=== PATIENT | female | born 1990 | race Caucasian/White ===

== ENCOUNTER 2020-01-09 14:14 | Emergency (ER) | payer MEDICAID, SELFPAY ==
[2020-01-09 14:17] VITALS: BP 116/73; PULSE 89; RESP 18; TEMP 36.2; O2SAT 97; BMI 32.8
--- NOTE | 2020-01-09 16:05 | ED.VIS.GEN ---
History of Present Illness Chief Complaint: Abd Pain Informant: Patient Narrative: 29-year-old female with no significant past medical history presents with concern for . Patient states that she has not had a period for 3 months. States that she has had multiple it of urinary test at home. States that she does have slight left-sided abdominal cramping. Denies any vaginal bleeding or discharge. Patient states that she has symptoms of like breast tenderness and nausea. States that her tests at home were negative with her first daughter. Denies any fever, chills, chest pain, shortness of breath. Past Medical History - Allergies and Home Meds Allergies/Adverse Reactions: Allergies codeine Allergy (Verified 01/09/20 14:17) Anaphylaxis ibuprofen Allergy (Verified 01/09/20 14:17) Anaphylaxis PLUS A RASH naproxen Allergy (Verified 01/09/20 14:17) Anaphylaxis tramadol Allergy (Verified 01/09/20 14:17) Anaphylaxis fluoxetine [From Prozac] Adverse Reaction (Verified 01/09/20 14:17) NEEDS FOLLOW-UP CYST [facility] - Prior records reviewed: Yes Past Medical History: None Surgical History: no surgical history Lives: With Family Smoking Status: Current every day smoker Alcohol: None Drugs: None Review of Systems General: Denies: Chills, Fever, Sweats Eyes: Denies: Visual changes - bilaterally, Diplopia ENT: Denies: Rhinorrhea, Sore throat Cardiovascular: Denies: Chest pain, Palpitations Respiratory: Denies: Dyspnea, Cough, Dyspnea on exertion Gastrointestinal: Reports: Abdominal pain. Denies: Nausea, Vomiting, Diarrhea, Melena, Hematochezia Genitourinary: Denies: Dysuria, Hematuria, Frequency Musculoskeletal: Denies: Back pain, Extremity Pain Skin: Denies: Rash, Wounds Neurological: Denies: Headache, Weakness, Numbness Physical Exam Vital Signs/Narrative: Vital Signs Temp Pulse Resp BP Pulse Ox 01/09/20 14:17 97.2 F L 89 18 116/73 97 Inital Vital Signs reviewed: Yes General: Well nourished, Well developed, No Acute Distress Head: Normocephalic, Atraumatic Eyes: Perrl, EOMI ENT: Moist mucous membranes, No rhinorrhea Neck: Supple, Nontender Cardiovascular: Regular rate, Regular rhythm, No murmurs Respiratory: No distress, CTA bilaterally, Chest nontender Abdomen: Soft, Nontender, Nondistended, Normal bowel sounds Back: Nontender, Normal Inspection Extremities: Nontender, No edema Skin: Normal color, No rash Neurological: Alert, Oriented x3, Cranial nerves II-XII grossly intact, Normal Strength, Normal Sensation Psychological: Normal affect, Normal Mood Diagnostic/Tx/Re-eval Laboratory Data 01/09/20 01/09/20 01/09/20 16:15 16:23 16:23 WBC 7.9 RBC 4.96 Hgb 14.3 Hct 44.6 MCV 89.9 MCH 28.8 MCHC 32.1 RDW Std Deviation 42.4 RDW Coeff of Wilberto 12.9 Plt Count 269 MPV 11.4 Immature Gran % (Auto) 0.300 Neut % (Auto) 58.6 Lymph % (Auto) 30.2 Esmeralda % (Auto) 7.0 Eos % (Auto) 3.5 Baso % (Auto) 0.4 Absolute Neuts (auto) 4.6 Absolute Lymphs (auto) 2.39 Nucleated RBC % 0 Sodium 140 Potassium 3.6 Chloride 108 H Carbon Dioxide 29.0 Anion Gap 3 L BUN 11 Creatinine 0.88 Estim Creat Clear Calc 89.90 Est GFR (MDRD) Af Amer 99 Est GFR (MDRD) Non-Af 82 BUN/Creatinine Ratio 12.6 Glucose 78 Calcium 9.2 Serum , Qual Urine Color Yellow Urine Clarity Clear Urine pH 7.0 Ur Specific [place] 1.010 Urine Protein Negative Urine Glucose (UA) Normal Urine Ketones Negative Urine Occult Blood Negative Urine Nitrite Negative Urine Bilirubin Negative Urine Urobilinogen Normal Ur Leukocyte Esterase 25 H Urine RBC 0 SEEN Urine WBC 0-5 SEEN Ur Squamous Epith Cells 0-5 SEEN Urine Bacteria 0 SEEN Urine Mucus 0 SEEN 01/09/20 16:23 WBC RBC Hgb Hct MCV MCH MCHC RDW Std Deviation RDW Coeff of Wilberto Plt Count MPV Immature Gran % (Auto) Neut % (Auto) Lymph % (Auto) Esmeralda % (Auto) Eos % (Auto) Baso % (Auto) Absolute Neuts (auto) Absolute Lymphs (auto) Nucleated RBC % Sodium Potassium Chloride Carbon Dioxide Anion Gap BUN Creatinine Estim Creat Clear Calc Est GFR (MDRD) Af Amer Est GFR (MDRD) Non-Af BUN/Creatinine Ratio Glucose Calcium Serum , Qual NEGATIVE Urine Color Urine Clarity Urine pH Ur Specific [place] Urine Protein Urine Glucose (UA) Urine Ketones Urine Occult Blood Urine Nitrite Urine Bilirubin Urine Urobilinogen Ur Leukocyte Esterase Urine RBC Urine WBC Ur Squamous Epith Cells Urine Bacteria Urine Mucus - Medical Decision Making Appears well nontoxic. Benign abdominal exam. Patient essentially states that she does not have significant abdominal pain but wanted to confirm whether she is or not. Patient's blood test negative. Urine negative. No evidence of UTI. Patient will follow up with her COMMERCIAL PROPERTY MANAGER in [place]. Asked to return for new or worsening symptoms. Impression: 1. Amennorhea ED Disposition - Plan for ED Patient: Disposition: Home or Assisted Living Instructions: ED Amenorrhea [facility] - 2 Days
[2020-01-09 16:32] VITALS: BP 127/89; PULSE 94; RESP 16; O2SAT 100
[2020-01-09 16:33] LABS: Bacteria 0 SEEN /hpf (None Seen); Mucous, Urine 0 SEEN /hpf (<or=2+); Red Blood Cells-Urine 0 SEEN /hpf (0-5)
[2020-01-09 16:38] LABS: Absolute Lymphocyte Count 2.39 X10^3/uL (0.83-4.51); Absolute Neutrophil Count 4.6 X10^3/uL (2.0-7.7); Basophil# 0.03 X10^3/uL; Basophil% 0.4 % (0-1); Eosinophil# 0.28 X10^3/uL; Eosinophils% 3.5 % (0-5); Hematocrit 44.6 % (37-47); Hemoglobin 14.3 g/dL (12.0-15.0); Lymphocyte # 2.39 X10^3/ul (4.0); Lymphocyte % 30.2 % (19-41); Mean Corp Hgb Conc 32.1 g/dL (32-36); Mean Corpuscular Hgb 28.8 pg (27.0-32.0); Mean Corpuscular Volume 89.9 fL (81-99); Mean Platelet Vol. 11.4 fl (6.2-12.0); Monocyte# 0.55 X10^3/uL; NRBC Flagged by Analyzer 0 % (0-5); Neutrophil # 4.64 X10^3/uL (2.7-7.7); Neutrophil % 58.6 % (47-70); Platelet Count 269 K/mm3 (150-450); RBC Distribution Width CV 12.9 % (11.6-14.6); RBC Distribution Width SD 42.4 fl (35.1-43.9); Red Blood Count 4.96 M/mm3 (4.2-5.4); White Blood Count 7.9 K/mm3 (4.4-11.0)
[2020-01-09 16:51] LABS: Color, Urine Yellow (Yellow); Glucose, Dipstick Normal (Normal); Ketone-Dipstick Negative (Negative); Leukocyte Esterase-Dipstick 25 /ul (Negative); Nitrite-Dipstick Negative (Negative); Occult Blood-Urine Negative /ul (Negative); Protein-Dipstick Negative (Negative); Urine Bilirubin Dipstick Negative (Negative); Urine Clarity Clear (Clear); Urine Urobilinogen Normal (Normal)
[2020-01-09 16:52] LABS: Anion Gap 3 (5-15); BUN 11 mg/dL (7-18); BUN/Creat Ratio 12.6 RATIO (10-20); Calcium,Total 9.2 mg/dL (8.5-10.1); Chloride 108 mmol/L (98-107); Creatinine, Serum 0.88 mg/dL (0.55-1.02); EST Glomerular Filtration Rate 82 mL/min (>60); Est Glom Filt Rate - Afr Amer 99 mL/min (>60); Glucose 78 mg/dL (74-106); Potassium 3.6 mmol/L (3.5-5.1); Sodium Level 140 mmol/L (136-145)
[2020-01-09 16:54] LABS: Internal QC Validated? YES +Cl - CLEAR BKGD; Pregnancy, Serum, hCG Quali. NEGATIVE Negative
[2020-01-09 17:02] LABS: Squamous Epithelial Cells - UA 0-5 SEEN /hpf (5-10); White Blood Cells 0-5 SEEN /hpf (0-5)
[2020-01-09 17:51] VITALS: PULSE 81; RESP 16; O2SAT 100
--- NOTE | 2020-01-09 17:51 | ED.RN ---
THIS NURSE REVIEWED D/C INSTRUCTIONS WITH PT. PT VERBALIZED UNDERSTANDING OF INSTRUCTIONS. IV D/C. IV CATHETER INTACT. PT TOLERATED WELL. PT DENIES FURTHER NEEDS OR QUESTIONS AT THIS TIME. PT AMBULATES FROM DEPARTMENT ON OWN WITHOUT ASSISTANCE FROM STAFF
== END 2020-01-09 17:52 | disposition home or self-care (01) ==
PROVIDERS: Emergency Provider Emergency Medicine
DX: N91.2 Amenorrhea, unspecified (principal); F17.200 Nicotine dependence, unspecified, uncomplicated
CPT/HCPCS: 80048; 81001; 84703; 85025; 99283; A4216

== ENCOUNTER 2020-03-10 16:54 | Emergency (ER) | payer MEDICAID, SELFPAY ==
[2020-03-10 16:55] VITALS: BP 112/62; PULSE 72; RESP 16; RESP 18; TEMP 36.1; O2SAT 97; O2SAT 98; BMI 34.9
--- NOTE | 2020-03-10 17:20 | ED.DCSUM_ITS ---
History of Present Illness Chief Complaint: General Illness Narrative: 30-year-old female presenting for evaluation of her pain. Patient had a miscarriage that did not complete and had D&E performed yesterday by her INDUCTION MACHINE SETTER Dr. Huang. Patient states that she was discharged home on Tylenol and ibuprofen but still has pain. She has not had fever, significant vaginal discharge. She has a slight amount of bleeding which she states was what he told her would be expected. Patient states he called her INDUCTION MACHINE SETTER however he was unable to call her in a prescription for narcotics and recommended that she go to the emergency room since he works 2 hours away from here. Past Medical History - Allergies and Home Meds Allergies/Adverse Reactions: Allergies codeine Allergy (Verified 01/09/20 14:17) Anaphylaxis ibuprofen Allergy (Verified 01/09/20 14:17) Anaphylaxis PLUS A RASH naproxen Allergy (Verified 01/09/20 14:17) Anaphylaxis tramadol Allergy (Verified 01/09/20 14:17) Anaphylaxis fluoxetine [From Prozac] Adverse Reaction (Verified 01/09/20 14:17) NEEDS FOLLOW-UP CYST Primary Care Physician: Mesha Castorena, PA [Primary Care Provider] - Prior records reviewed: Yes Past Medical History: None Surgical History: no surgical history Lives: Spouse/ Significant Other Smoking Status: Current every day smoker Alcohol: None Drugs: None Review of Systems General: Denies: Chills, Fever, Sweats Eyes: Denies: Visual changes - bilaterally, Diplopia ENT: Denies: Rhinorrhea, Sore throat Cardiovascular: Denies: Chest pain, Palpitations Respiratory: Denies: Dyspnea, Cough, Dyspnea on exertion Gastrointestinal: Reports: Abdominal pain. Denies: Nausea, Vomiting, Diarrhea, Constipation Genitourinary: Reports: - - Slight vaginal bleeding status post D and E. Denies: Dysuria, Hematuria Musculoskeletal: Denies: Myalgias, Arthralgias Skin: Denies: Rash, Abscess Neurological: Denies: Headache, Weakness Physical Exam Vital Signs/Narrative: Vital Signs Temp Pulse Resp BP Pulse Ox 03/10/20 16:55 97.0 F L 72 18 112/62 98 General: Well nourished, No Acute Distress Head: Normocephalic Eyes: Perrl, EOMI ENT: Moist mucous membranes, No rhinorrhea Cardiovascular: Regular rate, Regular rhythm Respiratory: No distress, CTA bilaterally Abdomen: Soft, Nondistended, Tender - Suprapubic tenderness to palpation. Extremities: Nontender, No edema Skin: Normal color, No rash. Negative for: Cyanosis, Diaphoresis Neurological: Alert, Oriented x3, Cranial nerves II-XII grossly intact Psychological: Normal affect, Normal Mood Diagnostic/Tx/Re-eval - Medical Decision Making 30-year-old female presenting for treatment of her pain status post D & E yesterday. Patient states that she was unable to get medication from her INDUCTION MACHINE SETTER because he works 2 hours away and he was unable to call it in. Her physical exam shows some mild suprapubic tenderness. Her abdomen is nonperitoneal. She has no red flag signs or symptoms of infection. I did review the surgical note from her procedure which was very clear that all products of conception were removed. Given patient's pain I will treat her with a short course of oxycodone. She will follow-up with her INDUCTION MACHINE SETTER. She is given signs and symptoms that she would need to return for. Patient stable discharge at this time. Impression: 1. Postoperative pain ED Disposition - Plan for ED Patient: Disposition: Home or Assisted Living Instructions: ED Post Op Wound Check, Pain Prescriptions: Oxycodone [Oxyir] 5 mg PO Q6H PRN PRN 3 Days #12 tab PRN Reason: Pain Prescription Printed Referrals: Mesha Castorena PA [Primary Care Provider] -
[2020-03-10] MEDS: oxyCODONE 5 MG Tablet PO (17:28)
[2020-03-10 17:50] VITALS: O2SAT 99
== END 2020-03-10 17:50 | disposition home or self-care (01) ==
PROVIDERS: Emergency Provider Student in an Organized Health Care Education/Training Program; PCP Physician Assistant Medical
DX: G89.18 Other acute postprocedural pain (principal); F17.200 Nicotine dependence, unspecified, uncomplicated
CPT/HCPCS: 99283

== ENCOUNTER 2020-04-07 13:36 | Emergency (ER) | payer MEDICAID, SELFPAY ==
[2020-04-07 13:38] VITALS: BP 133/73; PULSE 67; RESP 16; TEMP 36.3; O2SAT 99; BMI 35.4
--- NOTE | 2020-04-07 13:50 | ED.DCSUM_ITS ---
History of Present Illness Chief Complaint: Informant: Patient Narrative: 30-year-old female states that on March 10 she underwent a D&C with her LABORER POULTRY HATCHERY in [place]. She tells me that she called them today and they told her to go to emergency and get a test. She tells me that she took approximately 5 test today which is very inconclusive. She is 3 days late on starting her, even though she was had a D&C less than 30 days ago. She lives in [place] and is here in [place] doing laundry with her family. Therefore she was not able to make it back to [place] to be seen. She tells me that her LABORER POULTRY HATCHERY's office is quite concerned that if she is she will need to be observed. Past Medical History - Allergies and Home Meds Allergies/Adverse Reactions: Allergies codeine Allergy (Verified 04/07/20 13:38) Anaphylaxis ibuprofen Allergy (Verified 04/07/20 13:38) Anaphylaxis PLUS A RASH naproxen Allergy (Verified 04/07/20 13:38) Anaphylaxis tramadol Allergy (Verified 04/07/20 13:38) Anaphylaxis fluoxetine [From Prozac] Adverse Reaction (Verified 04/07/20 13:38) NEEDS FOLLOW-UP CYST Primary Care Physician: Mesha Castorena PA [Primary Care Provider] - Surgical History: no surgical history Lives: Spouse/ Significant Other Smoking Status: Current every day smoker Drugs: None Review of Systems General: Denies: Chills, Fever, Sweats Eyes: Denies: Visual changes - bilaterally, Diplopia ENT: Denies: Rhinorrhea, Sore throat Cardiovascular: Denies: Chest pain, Palpitations Respiratory: Denies: Dyspnea, Cough, Dyspnea on exertion Gastrointestinal: Denies: Abdominal pain, Nausea, Vomiting, Diarrhea, Melena, Hematochezia Genitourinary: Denies: Dysuria, Hematuria, Frequency Musculoskeletal: Denies: Back pain, Extremity Pain Skin: Denies: Rash, Wounds Neurological: Denies: Headache, Weakness, Numbness Physical Exam Vital Signs/Narrative: Vital Signs Temp Pulse Resp BP Pulse Ox 04/07/20 13:38 97.4 F L 67 16 133/73 H 99 Inital Vital Signs reviewed: Yes General: Well nourished, Well developed, No Acute Distress Head: Normocephalic, Atraumatic Eyes: Perrl, EOMI ENT: Moist mucous membranes, No rhinorrhea Neck: Supple, Nontender Cardiovascular: Regular rate, Regular rhythm, No murmurs Respiratory: No distress, CTA bilaterally, Chest nontender Abdomen: Soft, Nontender, Nondistended, Normal bowel sounds Back: Nontender, Normal Inspection Extremities: Nontender, No edema Skin: Normal color, No rash Neurological: Alert, Oriented x3, Cranial nerves II-XII grossly intact, Normal Strength, Normal Sensation Psychological: Normal affect, Normal Mood Diagnostic/Tx/Re-eval Laboratory Last Values Serum , Qual NEGATIVE Negative 04/07/20 13:55 - Medical Decision Making The results of the serum test are negative. She will be discharged home to follow-up with her doctor ED Disposition - Plan for ED Patient: Disposition: Home or Assisted Living Diagnosis: Concern about unplanned without diagnosis Additional Instructions: Follow-up with your LABORER POUL[employer] HATCHERY
[2020-04-07 14:20] LABS: Internal QC Validated? YES +Cl - CLEAR BKGD; Pregnancy, Serum, hCG Quali. NEGATIVE Negative
== END 2020-04-07 14:43 | disposition home or self-care (01) ==
PROVIDERS: Emergency Provider Emergency Medicine; PCP Physician Assistant Medical
DX: Z32.02 Encounter for pregnancy test, result negative (principal); F17.200 Nicotine dependence, unspecified, uncomplicated
CPT/HCPCS: 84703; 99282; A4216

== ENCOUNTER 2022-12-17 17:13 | Emergency (ER) | payer MEDICAID, SELFPAY ==
[2022-12-17 17:15] VITALS: BP 115/76; PULSE 117; RESP 17; TEMP 36.6; O2SAT 98; BMI 38.9
--- NOTE | 2022-12-17 17:42 | EDS_ITS ---
HPI <KALI Hobbs - Last Filed: 12/17/22 20:12> History of Present Illness Chief Complaint: Cold Sx Narrative Narrative: Patient presenting today with flu-like symptoms that she has had since night. She reports occasional wheezing, lightheadedness, wet nonproductive cough, sore throat, and sneezing. She has had occasional nausea. She reports that at times she feels like she cannot take a full breath due to her cough. She denies any fever, chills, abdominal pain, or vomiting. She reports that her son has been sick with similar symptoms. PFSH <KALI Hobbs - Last Filed: 12/17/22 20:12> [facility] Home Medications Formula Tablet 1 tab PO DAILY 04/07/20 [History Last Taken Unknown] prednisone 20 mg tablet 40 mg (2 x 20 mg) PO DAILY 5 days #10 tabs 12/17/22 [Rx Last Taken Unknown] Allergy/AdvReac Type Severity Reaction Status Date / Time codeine Allergy Anaphylaxis Verified 12/17/22 17:14 ibuprofen Allergy Anaphylaxis Verified 12/17/22 17:14 naproxen Allergy Anaphylaxis Verified 12/17/22 17:14 tramadol Allergy Anaphylaxis Verified 12/17/22 17:14 fluoxetine [From Prozac] AdvReac NEEDS Verified 12/17/22 17:14 FOLLOW-UP Social History Smoking Status: Current every day smoker tobacco type: cigarettes ROS <KALI Hobbs - Last Filed: 12/17/22 20:12> ROS ED Constitutional Constitutional ED: Denies chills or fever(s) ENT ENT ED: Reports nasal congestion and sore throat Cardiovascular Cardiovascular: Denies chest pain Respiratory/Chest Respiratory/Chest: Reports chest congestion, cough and wheezing; Denies dyspnea or hemoptysis Gastrointestinal Gastrointestinal: Reports nausea; Denies abdominal pain or vomiting Musculoskeletal Musculoskeletal: Denies arthralgias or myalgias Integumentary Denies rash Neurologic Neurologic: Denies weakness EXAM <KALI Hobbs - Last Filed: 12/17/22 20:12> Physical Exam Const Vital Signs: 12/17/22 17:15 12/17/22 17:21 12/17/22 19:06 Temperature 97.9 F 98.9 F Temperature Source Temporal Temporal Pulse Rate 117 H 95 Respiratory Rate 17 16 Respiratory Pattern Normal Blood Pressure 115/76 129/85 H Blood Pressure Mean 89 99 Pulse Ox 98 97 Oxygen Delivery Method Room Air Positive well nourished, well developed and no apparent distress General Appearance ED: well developed HEENT Reports normocephalic, head/scalp atraumatic and TM's clear HEENT Narrative: Posterior pharynx clear, no tonsillar exudates, uvula midline, no sign of peritonsillar abscess, no trismus, no drooling Tympanic Membrane ED: Yes TM's clear bilateral Mouth ED: Yes moist mucous membranes normal Eyes PERRL and EOMs intact bilaterally Neck full ROM and supple Chest Wall inspection of chest normal Resp normal respiratory effort Resp Narrative: Minimal expiratory wheezes in bilateral lung badillo. Cardio regular rate and regular rhythm GI soft to palpation, non-tender, non-distended and no masses Back/Spine normal ROM and normal to inspection Extremity normal to inspection and full ROM Neuro oriented x3, CN's II-XII intact bilaterally, moves all extremities, no focal motor deficits and no sensory deficits noted Sensorium / Orientation: awake and alert Psych mental status grossly normal and thought process normal Skin no rashes or lesions noted and no wounds <Dr. Geovani Og DO - Last Filed: 12/17/22 19:35> Physical Exam Const Vital Signs: 12/17/22 17:15 12/17/22 17:21 12/17/22 19:06 Temperature 97.9 F 98.9 F Temperature Source Temporal Temporal Pulse Rate 117 H 95 Respiratory Rate 17 16 Respiratory Pattern Normal Blood Pressure 115/76 129/85 H Blood Pressure Mean 89 99 Pulse Ox 98 97 Oxygen Delivery Method Room Air [facility] <KALI oHbbs - Last Filed: 12/17/22 20:12> [facility] Narrative Medical decision making narrative: Patient presenting with flulike symptoms that she has had since . She is well-appearing in no acute distress. She is a little tachycardic here at 117 bpm. She reports that she has not really been staying well-hydrated, I did give her some p.o. fluids and she is tolerating these well. Her symptoms do sound viral in nature, COVID and flu swabs will be obtained. Son was sick with similar symptoms. She is not febrile here and O2 saturation is 98%. She is nontoxic-appearing. She will be given an inhaler here and a prescription for prednisone given her wheezing. Symptoms are consistent with a viral illness, swabs are negative. She has been given supportive care measures and is to stay well-hydrated. She will follow-up with her PCP in 5 to 7 days will be d ischarged home in stable condition. She is comfortable with plan and has been given return instructions. I have personally performed a face to face assessment of the patient and have reviewed the MARY Note. I performed a substantive portion of the visit including all aspects of the following. My chau findings include: History is patient reports flulike symptoms since . She notes some whee zing. She has a remote history of asthma but is not treated. No fevers. Son has been sick with similar symptoms but got over it. Exam is patient has rhonchi with a few scattered expiratory wheezes. She clinically appears well. Normal vital signs. Medical Decison Making COVID and influenza swabs were negative. She was instructed on albuterol MDI with spacer was also given Tylenol for headache. We will place her also on prednisone. Monitoring breathing if worsening. At this point I do not feel chest x-ray is needed. <Dr. Geovani Og, DO - Last Filed: 12/17/22 19:35> [facility] Narrative Medical decision making narrative: Patient presenting with flulike symptoms that she has had since . She is well-appearing in no acute distress. She is a little tachycardic here at 117 bpm. She reports that she has not really been staying well-hydrated, I did give her some p.o. fluids and she is tolerating these well. Her symptoms do sound viral in nature, COVID and flu swabs will be obtained. Son was sick with similar symptoms. She is not febrile here and O2 saturation is 98%. She is nontoxic-appearing. I have personally performed a face to face assessment of the patient and have reviewed the MARY Note. I performed a substantive portion of the visit including all aspects of the following. My chau findings include: History is patient reports flulike symptoms since . She notes some wheezing. She has a remote history of asthma but is not treated. No fevers. Son has been sick with similar symptoms but got over it. Exam is patient has rhonchi with a few scattered expiratory wheezes. She clinically appears well. Normal vital signs. Medical Decison Making COVID and influenza swabs were negative. She was instructed on albuterol MDI with spacer was also given Tylenol for headache. We will place her also on prednisone. Monitoring breathing if worsening. At this point I do not feel chest x-ray is needed. Discharge Plan Triage Chief Complaint: Cold Sx ED Midlevel Provider: Mana Aranda ED Provider: Geovani Og Dx/Rx/DC Orders Clinical Impression: Viral illness Instructions: ED Viral Syndrome (Adult) Prescriptions: New prednisone 20 mg tablet 40 mg PO DAILY 5 Days Qty: 10 0RF No Action Formula Tablet tablet 1 tab PO DAILY Primary Care Provider: Care Physician,No Primary Referrals: Mesha Castorena PA [Non-Staff] - 1 Week if not improving Activity Restrictions/Additional Instructions: Please follow-up with your PCP and return for any worsening of your symptoms, stay well-hydrated, alternate Tylenol and ibuprofen for fever or headache. You can take [id number] cold and flu medications but be careful not to take additional Tylenol with these medications. Disposition Disposition: Home, Self Care Discharge Date/Time: 12/17/22 19:25
[2022-12-17] MEDS: Acetaminophen 500 MG Tablet 1000 MG PO (19:04)
[2022-12-17 19:06] VITALS: BP 129/85; PULSE 95; RESP 16; TEMP 37.2; O2SAT 97
[2022-12-17] MEDS: Albuterol Sulfate 8 gm Inhaler (60 puffs) 2 PUFF INHALATION (19:23)
== END 2022-12-17 19:25 | disposition home or self-care (01) ==
PROVIDERS: Emergency Provider Emergency Medicine; Visit Provider Emergency Medicine
DX: B34.9 Viral infection, unspecified (principal); F17.210 Nicotine dependence, cigarettes, uncomplicated
CPT/HCPCS: 87428; 99282

== ENCOUNTER 2023-03-02 10:22 | Emergency (ER) | payer MEDICAID, SELFPAY ==
[2023-03-02 10:23] VITALS: BP 117/92; PULSE 110; RESP 22; TEMP 37.2; O2SAT 95
--- NOTE | 2023-03-02 10:57 | EDS_ITS ---
HPI History of Present Illness Chief Complaint: General Illness Informant: patient Narrative Narrative: 33-year-old female presenting to the emergency room with chief complaint of COVID-19. Patient states that for 2 days she has had cough diarrhea and feeling poorly. She had fever day 1. She took a COVID home test last night that was positive. She would like a confirmatory test. Her son is also being seen. [facility] Medical History Asthma Home Medications Formula Tablet 1 tab PO DAILY 04/07/20 [History Last Taken Unknown] prednisone 20 mg tablet 40 mg (2 x 20 mg) PO DAILY 5 days #10 tabs 12/17/22 [Rx Last Taken Unknown] aripiprazole 2 mg tablet (Abilify) 2 mg PO DAILY 03/02/23 [History Last Taken Unknown] lamotrigine 150 mg tablet mg 03/02/23 [History Last Taken Unknown] Allergy/AdvReac Type Severity Reaction Status Date / Time codeine Allergy Anaphylaxis Verified 03/02/23 10:22 ibuprofen Allergy Anaphylaxis Verified 03/02/23 10:22 naproxen Allergy Anaphylaxis Verified 03/02/23 10:22 tramadol Allergy Anaphylaxis Verified 03/02/23 10:22 fluoxetine [From Prozac] AdvReac NEEDS Verified 03/02/23 10:22 FOLLOW-UP Surgical History History of appendectomy History of cholecystectomy Social History Smoking Status: Never smoker [facility] ED Constitutional Constitutional ED: Reports fever(s); Denies chills or weight loss Eyes Eyes: Denies change in vision or diplopia ENT ENT ED: Reports rhinorrhea; Denies ear pain or sore throat Cardiovascular Cardiovascular: Denies chest pain, orthopnea, palpitations or racing heartbeat Respiratory/Chest Respiratory/Chest: Reports cough; Denies dyspnea or orthopnea Gastrointestinal Gastrointestinal: Reports diarrhea; Denies abdominal pain, nausea or vomiting Genitourinary Genitourinary ED: Denies dysuria, hematuria or urinary frequency Musculoskeletal Musculoskeletal: Reports myalgias; Denies arthralgias Integumentary Denies abscess or rash Neurologic Neurologic: Reports headache(s) and other; Denies paresthesias or weakness Psychiatric Psychiatric: Denies anxiety, depression, suicidal ideation or suicidal thoughts Endocrine Endocrinology: Denies polydipsia, polyphagia or polyuria Allergic/Immunologic Allergic/Immunologic ED: Denies mouth swelling, tongue swelling or urticaria EXAM Physical Exam Narrative Exam Narrative: Well-appearing 33-year-old female sitting on the chair. Const Vital Signs: 03/02/23 10:23 03/02/23 10:38 Temperature 99 F Temperature Source Temporal Pulse Rate 110 H Respiratory Rate 22 H Respiratory Effort Normal Non-Labored Respiratory Pattern Normal Blood Pressure 117/92 H Blood Pressure Mean 100 Pulse Ox 95 Oxygen Delivery Method Room Air Positive well nourished and well developed General Appearance ED: well developed HEENT Reports normocephalic, head/scalp atraumatic and moist mucous membranes Eyes PERRL and EOMs intact bilaterally Neck no lymphadenopathy, supple and no JVD Resp normal respiratory effort and clear to auscultation bilaterally Cardio regular rate, regular rhythm and no murmurs Cardio Narrative: Heart rate noted to be 91 on my examination GI normal to inspection, nondistended, normoactive bowel sounds and non-tender Palpation: soft Back/Spine no CVA tenderness and normal ROM Extremity normal to inspection General Extremety ED: Negative for edema General Extremity: Negative for edema Neuro oriented x3 and CN's II-XII intact bilaterally Sensorium / Orientation: alert Motor Exam: strength 5/5 throughout Psych mental status grossly normal Mood & Affect: Negative for depressed or tearful Skin no rashes or lesions noted and no wounds Discharge Plan Triage Chief Complaint: General Illness ED Provider: Geovani Og Dx/Rx/DC Orders Prescriptions: No Action Formula Tablet tablet 1 tab PO DAILY prednisone 20 mg tablet 40 mg PO DAILY 5 Days Qty: 10 0RF lamotrigine 150 mg tablet Patient Comments: take 1 tablet by mouth twice a day aripiprazole [Abilify] 2 mg tablet 2 mg PO DAILY Primary Care Provider: Care Physician,No Primary Referrals: Care Physician,No Primary [Primary Care Provider] -
[2023-03-02 12:22] VITALS: BP 139/76; PULSE 64; RESP 14; TEMP 36.4; O2SAT 99
== END 2023-03-02 12:52 | disposition home or self-care (01) ==
PROVIDERS: Emergency Provider Emergency Medicine; PCP Internal Medicine; Visit Provider Emergency Medicine
DX: U07.1 COVID-19 (principal)
CPT/HCPCS: 87811; 99282

== ENCOUNTER 2024-05-22 19:57 | Emergency (ER) | payer MEDICAID, SELFPAY ==
[2024-05-22 19:58] VITALS: BP 129/74; PULSE 84; RESP 20; TEMP 36.8; O2SAT 98; BMI 36.1
--- NOTE | 2024-05-22 20:22 | ED.VIS.GI ---
HPI HPI - GI History of Present Illness Chief Complaint: Abd Pain Informant: patient Abdominal Pain/Flank Pain Onset: Yesterday Context: Sudden Onset Timing: Intermittent Quality: Sharp and - (ripping) Location: RUQ and RLQ Worsened by: - (Standing) Relieved by: - (Bending forward) Nausea/Vomiting/Emesis GI Symptom: Positive for Nausea and Vomiting Quality: Positive for Nonbilious; Negative for Blood streaks, Coffee ground or Hematemesis Diarrhea/Melena/Hematochezia GI Symptom: Negative for Diarrhea, Melena or Hematochezia Associated Symptoms Associated Symptoms: Negative for Dysuria, Frequency or Hematuria Narrative Narrative: Patient presents with abdominal pain that began yesterday. Patient states it began rather suddenly. Patient states it is intermittent. Patient describes it as sharp and ripping. Patient states it is over the right mid to lower abdomen. Patient states it is worse with standing and better with resting and bending forward. Patient admits to some nausea and vomiting. Patient denies any hematemesis or coffee-ground emesis. Patient denies any diarrhea, melena, or hematochezia. Patient denies any urinary complaints. [facility] Medical History (Updated 05/22/24 @ 22:[address] Raj Hidalgo, DO) Ovarian cyst Asthma Home Medications ?Medication ?Instructions ?Recorded ?Last Taken ?Type Formula Tablet 1 tab PO DAILY 04/07/20 Unknown History lamotrigine 150 mg tablet 150 mg PO DAILY 03/02/23 Unknown History biotin 10,000 mcg capsule 10,000 mcg PO DAILY 05/22/24 Unknown History brexpiprazole 0.5 mg tablet 0.5 mg PO DAILY 05/22/24 Unknown History (Rexulti) medroxyprogesterone 150 mg/mL 150 mg IM 05/22/24 Unknown History intramuscular syringe vitamin B complex 1 cap PO DAILY 05/22/24 Unknown History Allergy/AdvReac Type Severity Reaction Status Date / Time codeine Allergy Anaphylaxis Verified 05/22/24 19:58 ibuprofen Allergy Anaphylaxis Verified 05/22/24 19:58 tramadol Allergy Anaphylaxis Verified 05/22/24 19:58 fluoxetine (From Prozac) AdvReac NEEDS Verified 05/22/24 19:58 FOLLOW-UP Surgical History Hx of dilation and curettage Hx of section History of cholecystectomy History of appendectomy Social History Smoking Status: Former smoker ROS ROS ED Constitutional Constitutional ED: Denies chills or fever(s) Eyes Eyes: Denies blurry vision or change in vision ENT ENT ED: Denies rhinorrhea or sore throat Cardiovascular Cardiovascular: Denies chest pain or palpitations Respiratory/Chest Respiratory/Chest: Denies cough or dyspnea Gastrointestinal Gastrointestinal: Reports abdominal pain, nausea and vomiting Genitourinary Genitourinary ED: Denies dysuria or hematuria Musculoskeletal Musculoskeletal: Denies back pain or neck pain Integumentary Denies abscess or rash Neurologic Neurologic: Reports headache(s); Denies weakness Allergic/Immunologic Allergic/Immunologic ED: Denies mouth swelling or urticaria EXAM Physical Exam Const Vital Signs: 05/22/24 19:58 05/22/24 21:57 Temperature 98.3 F Temperature Source Oral Pulse Rate 84 85 Respiratory Rate 20 H 18 Blood Pressure 129/74 H 134/66 H Blood Pressure Mean 92 88 Pulse Ox 98 99 Oxygen Delivery Method Room Air Room Air Positive well nourished and well developed General Appearance ED: well developed and NAD HEENT Reports moist mucous membranes Neck supple and no JVD Resp normal respiratory effort and clear to auscultation bilaterally Cardio regular rate and regular rhythm GI non-distended Palpation: soft and tender RLQ and RUQ Extremity full ROM Neuro CN's II-XII intact bilaterally, moves all extremities and no sensory deficits noted Sensorium / Orientation: alert Motor Exam: strength 5/5 throughout Psych mental status grossly normal MDM MDM MDM Narrative Medical decision making narrative: Differential diagnosis includes ovarian cyst, appendicitis, gastroenteritis, colitis, pancreatitis, ectopic , ureteral calculus, urinary tract infection, and pyelonephritis. CBC will be obtained to assess for leukocytosis and anemia. Basic metabolic profile will be obtained to assess for electrolyte abnormality and renal function. Lipase will be obtained to assess for pancreatitis. Urine hCG will be obtained to assess for . Urinalysis will be obtained to assess for urinary tract infection and hematuria. CT scan of the abdomen and pelvis will be obtained to assess for appendicitis, ovarian cyst, pancreatitis, ureteral calculus, and pyelonephritis. Lab Data Attestation: I reviewed the patient's lab results. Lab results narrative: CBC was reviewed and was within normal limits. Basic metabolic profile was reviewed and was within normal limits. Lipase was reviewed and was normal at 57. Serum hCG was reviewed and was negative. Urinalysis was reviewed. There is no evidence of urinary tract infection or hematuria. Labs: Laboratory Results - last 24 hr 05/22/24 20:45 WBC 10.4 RBC 4.29 Hgb 12.2 Hct 37.4 MCV 87.2 MCH 28.4 MCHC 32.6 RDW Std Deviation 43.5 RDW Coeff of Wilberto 13.6 Plt Count 285 MPV 10.6 Immature Gran % (Auto) 0.300 Neut % (Auto) 59.2 Lymph % (Auto) 29.7 [place] % (Auto) 6.8 Eos % (Auto) 3.2 Baso % (Auto) 0.8 Absolute Neuts (auto) 6.2 Absolute Lymphs (auto) 3.09 Nucleated RBC % 0 Sodium 140 Potassium 4.1 Chloride 105 Carbon Dioxide 23.6 Anion Gap 11 BUN 9 Creatinine 0.78 Estim Creat Clear Calc 120.29 Est GFR (MDRD) Non-Af 104 BUN/Creatinine Ratio 12.1 Glucose 94 Calcium 9.7 Lipase 57 Serum , Qual NEGATIVE Urine Color Yellow Urine Clarity Turbid Urine pH 6.5 Ur Specific [place] 1.015 Urine Protein 15 H Urine Glucose (UA) Normal Urine Ketones Negative Urine Occult Blood Negative Urine Nitrite Negative Urine Bilirubin Negative Urine Urobilinogen Normal Ur Leukocyte Esterase Negative Urine RBC 0-5 SEEN Urine WBC 0-5 SEEN Ur Squamous Epith Cells 5-10 SEEN Urine Bacteria 1+ Urine Mucus 0 SEEN Radiography Diagnostic Testing: Clinical Impression(s) from Imaging Studies Abdomen/Pelvis CT 05/22/24 21:25 IMPRESSION: No acute findings in the abdomen and pelvis. Reading Location: [facility] CT scan of the abdomen and pelvis was obtained. There is no evidence of bowel obstruction or perforation. There is no evidence of appendicitis. There is a left adnexal cyst. There is no free air or free fluid. This was interpreted by the radiologist and was also independently reviewed by myself. Treatment and Re-Evaluation :: Patient was given IV fluids, Toradol, and Zofran. Patient was feeling better on reevaluation. Patient was advised of her findings. Patient was instructed to drink plenty of fluids. Patient was instructed to take Tylenol as needed for pain. Patient was instructed to follow-up with her primary care physician in 5 to 7 days. Patient understood and was agreeable with the plan. All questions were answered. Discharge Plan Triage Chief Complaint: Abd Pain ED Provider: Raj Hidalgo Dx/Rx/DC Orders Clinical Impression: Abdominal pain, Body mass index (BMI) of 30 to 39 in adult Instructions: ED Abdominal Pain Unkn Cause Fem Prescriptions: No Action Formula Tablet tablet 1 tab PO DAILY lamotrigine 150 mg tablet 150 mg PO DAILY Patient Comments: take 1 tablet by mouth twice a day biotin 10,000 mcg capsule 10,000 mcg PO DAILY vitamin B complex Capsule 1 cap PO DAILY medroxyprogesterone 150 mg/mL syringe 150 mg IM Rexulti 0.5 mg tablet 0.5 mg PO DAILY Primary Care Provider: Barbie Agudelo Referrals: Barbie Agudelo, [employer] [Primary Care Provider] - 5-7 Days Print Language: [place] Disposition Disposition: Home, Self Care
[2024-05-22] MEDS: Ketorolac 30 MG/ML Syringe IV (20:51)
[2024-05-22] MEDS: Ondansetron 4 MG/2 ML Vial IV (20:52)
[2024-05-22] MEDS: 0.9% Normal Saline (1000mL) 1,000 ML 999 ML IV (20:52)
[2024-05-22 21:02] LABS: Mucous, Urine 0 SEEN /hpf (<or=2+)
[2024-05-22 21:11] LABS: Absolute Lymphocyte Count 3.09 X10^3/uL (0.83-4.51); Absolute Neutrophil Count 6.2 X10^3/uL (2.0-7.7); Basophil# 0.08 X10^3/uL; Basophil% 0.8 % (0-1); Eosinophil# 0.33 X10^3/uL; Eosinophils% 3.2 % (0-5); Hematocrit 37.4 % (37-47); Hemoglobin 12.2 g/dL (12.0-15.0); Lymphocyte # 3.09 X10^3/ul (0.83-4.51); Lymphocyte % 29.7 % (19-41); Mean Corp Hgb Conc 32.6 g/dL (32-36); Mean Corpuscular Hgb 28.4 pg (27.0-32.0); Mean Corpuscular Volume 87.2 fL (81-99); Mean Platelet Vol. 10.6 fl (6.2-12.0); Monocyte# 0.71 X10^3/uL; Monocyte% 6.8 % (0-10); NRBC Flagged by Analyzer 0 % (0-5); Neutrophil # 6.15 X10^3/uL (2.7-7.7); Neutrophil % 59.2 % (47-70); Platelet Count 285 K/mm3 (150-450); RBC Distribution Width CV 13.6 % (11.6-14.6); RBC Distribution Width SD 43.5 fl (35.1-43.9); Red Blood Count 4.29 M/mm3 (4.2-5.4); White Blood Count 10.4 K/mm3 (4.4-11.0)
[2024-05-22 21:13] LABS: Color, Urine Yellow (Yellow); Glucose, Dipstick Normal (Normal); Ketone-Dipstick Negative (Negative); Leukocyte Esterase-Dipstick Negative /ul (Negative); Nitrite-Dipstick Negative (Negative); Occult Blood-Urine Negative /ul (Negative); Protein-Dipstick 15 mg/dl (Negative); Specific Gravity, Urine 1.015 (1.002-1.030); Urine Bilirubin Dipstick Negative (Negative); Urine Clarity Turbid (Clear); Urine Urobilinogen Normal (Normal); Urine pH 6.5 (5.0 - 8.0)
[2024-05-22 21:21] LABS: Internal QC Validated? YES +Cl - CLEAR BKGD; Pregnancy, Serum, hCG Quali. NEGATIVE Negative
--- NOTE | 2024-05-22 21:25 | CT_ITS ---
PROCEDURE: ABDOMEN/PELVIS WITHOUT CONT 05/22/2024 REASON FOR EXAM: PAIN TECHNIQUE: Abdomen CT without and with intravenous contrast. Coronal and Sagittal reconstruction series were provided. PATIENT PREPARATION: Per protocol ORAL CONTRAST TYPE: None. AMOUNT: mL One or more dose reduction techniques were used (e.g., Automated exposure control, adjustment of the mA and/or kV according to patient size, use of iterative reconstruction technique. COMPARISON: None FINDINGS: Lung bases: Unremarkable Liver: No focal lesion. Homogeneous attenuation. Gallbladder: No ductal dilation. Status post cholecystectomy. Spleen: No splenomegaly. No mass. Pancreas: Normal size without evidence of mass surrounding inflammation or ductal dilation. Adrenals: Unremarkable Kidneys: Normal renal sizes. No hydronephrosis. Bladder: Urinary bladder is unremarkable. Reproductive Organs: 1.9 cm left adnexal cyst. Bowel: Stomach is unremarkable. No bowel dilation or wall thickening. Moderate colonic stool. Status post appendectomy. Appendix: Status post appendectomy. Lymph nodes: No suspicious lymph node enlargement. Vasculature: The abdominal aorta and IVC are normal. Peritoneum / Retroperitoneum: No ascites. No pneumoperitoneum. Bones: Unremarkable. CT/Abdomen/Pelvis without Cont IMPRESSION: No acute findings in the abdomen and pelvis. Reading Location: [facility]
[2024-05-22 21:36] LABS: Anion Gap 11 (5-15); BUN 9 mg/dL (4-19); BUN/Creat Ratio 12.1 RATIO (10-20); Calcium,Total 9.7 mg/dL (7.6-11.0); Carbon Dioxide 23.6 mmol/L (21.0-32.0); Chloride 105 mmol/L (98-108); Creatinine, Serum 0.78 mg/dL (0.70-1.20); EST Glomerular Filtration Rate 104 (>60); Estimated Creatinine Clearance 120.29 ml/min (50-250); Glucose 94 mg/dL (70-99); Lipase 57 U/L (13-75); Potassium 4.1 mmol/L (3.3-5.1); Sodium Level 140 mmol/L (133-145)
[2024-05-22 21:53] LABS: Bacteria 1+ /hpf (None Seen); Squamous Epithelial Cells - UA 5-10 SEEN /hpf (5-10)
[2024-05-22 21:54] LABS: Red Blood Cells-Urine 0-5 SEEN /hpf (0-5); White Blood Cells 0-5 SEEN /hpf (0-5)
[2024-05-22 21:57] VITALS: BP 134/66; PULSE 85; RESP 18; O2SAT 99
--- NOTE | 2024-05-22 22:33 | ED.RN ---
PT. REQUESTED A PHONE. THERE WAS NONE IN THE DEPARTMENT TO TAKE TO THE ROOM. ATTEMPTED TO CALL S/O WITH NO ANSWER. PT. REQUESTED A RIDE HOME AND TO CALL . NO ANSWER AT THIS TIME.
[2024-05-22 22:41] VITALS: BP 139/85; PULSE 70; RESP 16; TEMP 36.8; O2SAT 99
--- NOTE | 2024-05-22 22:43 | ED.RN ---
TRIED TO CALL NUMBER PROVIDED BY PT. FOR [facility] AND OTHER NUMBERS LISTED FOR LOCATION WITH NO ANSWER.
== END 2024-05-22 22:44 | disposition home or self-care (01) ==
PROVIDERS: Emergency Provider Emergency Medicine; PCP Nurse Practitioner Family; Visit Provider Emergency Medicine
DX: R10.9 Unspecified abdominal pain (principal); J45.909 Unspecified asthma, uncomplicated; Z87.891 Personal history of nicotine dependence
CPT/HCPCS: 74176; 80048; 81001; 83690; 84703; 85025; 96361; 96374; 96375; 96376; 99282; A4216; J2405

== ENCOUNTER → 2024-05-22 | Outpatient (CLI) | payer MEDICAID, SELFPAY ==
[2024-05-22 17:32] LABS: Syphilis Antibodies No_Result (Nonreactive)
[2024-05-22 18:03] LABS: HIV Nonreactive (Nonreactive)
[2024-05-24 05:07] LABS: HEPATITIS B SURFACE AG Negative (Negative); Hep B Surface Antibodies Non Reactive (.); Hepatitis B Core Ab Total Negative (Negative); Hepatitis C Ab Non Reactive (Non Reactive)
[2024-05-28 14:08] LABS: HPV APTIMA, High Risk Negative (Negative)
== END | disposition home or self-care (01) ==
LOC: VSLAB 13:55
PROVIDERS: PCP Nurse Practitioner Family; Visit Provider Nurse Practitioner Family
DX: Z01.419 Encounter for gynecological examination (general) (routine) without abnormal findings (principal); Z11.3 Encounter for screening for infections with a predominantly sexual mode of transmission
CPT/HCPCS: 36415; 86703; 86704; 86705; 86706; 86707; 86780; 86803; 87340; 87350; 88175; G0145